=== PATIENT | male | born 1935 | race Caucasian/White ===

== ENCOUNTER 2016-08-10 16:10 | Outpatient (CLI) | payer BC, MEDICARE | END 2016-08-10 16:11 | disposition home or self-care (01) | DX: L60.0 Ingrowing nail (principal) ==

== ENCOUNTER 2016-11-18 13:09 | Outpatient (CLI) | payer MEDICARE, OTHER | END 2016-11-18 13:10 | disposition home or self-care (01) | DX: M85.88 Other specified disorders of bone density and structure, other site (principal); Z79.83 Long term (current) use of bisphosphonates ==

== ENCOUNTER → 2016-11-18 | Outpatient (CLI) | payer MEDICARE ==
[~2016-11-18] MED LIST: ALBUTEROL NEB 2.5 MG/3 ML INH ONE
== END ==
LOC: RT 14:30
PROVIDERS: ATTEND Family Medicine
DX: J45.909 Unspecified asthma, uncomplicated (principal)
CPT/HCPCS: 94060; J7613

== ENCOUNTER 2017-05-04 13:44 | Emergency (ER) | payer MEDICARE, OTHER ==
--- NOTE | 2017-05-04 15:06 | ED Physician Documentation ---
PD HPI HEAD INJURY - Stated complaint Stated Complaint: FOREHEAD LAC - Chief complaint Chief Complaint: Laceration - History obtained from History obtained from: Patient, Family - History of Present Illness Mechanism of head injury: Laceration (got kick back with chainsaw and the tip struck his forehead, with laceration there.) Where head injury occurred: Home Timing - onset: Today Location of injury: Front (forehead) Associated symptoms: No: LOC, AMS Symptoms worsen with: Palpation Contributing factors: No: Anticoagulated Similar symptoms before: Has not had sx before Recently seen: Not recently seen Review of Systems Eyes: denies: Loss of vision, Decreased vision Neurologic: denies: Altered mental status, Headache PD PAST MEDICAL HISTORY - Past Medical History Cardiovascular: High cholesterol Respiratory: Asthma GI: GERD - Past Surgical History Past Surgical History: Yes HEENT: Tonsil/Adenoidectomy - Present Medications Home Medications: Ambulatory Orders Medication Instructions Recorded Confirmed Simvastatin [Zocor] 10 mg PO DAILY 11/11/13 05/04/17 Atenolol [Tenormin] 25 mg PO DAILY 05/04/17 05/04/17 Gabapentin [Neurontin] 100 mg PO DAILY 05/04/17 05/04/17 Montelukast [Singulair] 10 mg PO QPM 05/04/17 05/04/17 tiZANidine [Zanaflex] 2 mg PO DAILY 05/04/17 05/04/17 traZODone [Desyrel] 50 mg PO QPM 05/04/17 05/04/17 - Allergies Allergies/Adverse Reactions: Allergies Allergy/AdvReac Type Severity Reaction Status Date / Time No Known Drug Allergies Allergy Verified 05/04/17 14:14 - Social History Does the pt smoke?: No Smoking Status: Never smoker Does the pt drink ETOH?: No Does the pt have substance abuse?: No - Immunizations Immunizations are current?: Yes - POLST Patient has POLST: No PD ED PE NORMAL - Vitals Vital signs reviewed: Yes - General General: Alert and oriented X 3, No acute distress, Well developed/nourished - HEENT HEENT: PERRL, EOMI, Other (forehead above left eyebrow with 2 cm laceration with irregular edges, mild bleeding, no FB, full thickness. Not apparent bone injury and not deep tenderness. ) - Neck Neck: Supple, no meningeal sign, No bony TTP, No adenopathy - Neuro Neuro: Alert and oriented X 3, cyber systems engineer 2-12 intact, No motor deficit, No sensory deficit, Normal speech, Other - Psych Psych: Normal mood, Normal affect Results - Vitals Vitals: Oxygen O2 Source Room air Procedures - Laceration (location) forehead Length in cm: 2 Wound type: Irregular, Into subcut fat, Clean. No: Contaminated Anesthesia: Lidocaine 1% with epi Skin layer closure: Nylon, Running, Size #-0 - enter number (5) Other: Patient tolerated well, No complications, Neurovascular intact, Dressing applied, Tetanus booster given Complexity: Simple PD MEDICAL DECISION MAKING - ED course Complexity details: considered differential (no signs of CHI and is not on blood thinners. ), d/w patient Departure - Departure Disposition: 01 Home, Self Care Clinical Impression: Laceration of forehead Qualifiers: Encounter type: initial encounter Qualified Code(s): S01.81XA - Laceration without foreign body of other part of head, initial encounter Condition: Stable Record reviewed to determine appropriate education?: Yes Instructions: ED Laceration Facial Sutr Tape Follow-Up: Layo King MD [Primary Care Provider] - Comments: It is okay to wash and shower. Clean off the wound twice a day with soap and water, or peroxide and water. Apply some antibiotic ointment to it to keep it moist. Also to watch for signs of infection such as purulence, redness or increasing pain. Return to your primary care or the ER at the specified time for suture removal. Tylenol or ibuprofen if needed for pains. Suture removal 8 -10 days. Discharge Date/Time: 05/04/17 16:08
[2017-05-04] MEDS ORDERED: LIDOCAINE MPF 1%-EPI 1:200000 30 ML VIAL ONE (15:23)
[2017-05-04] MEDS: LIDOCAINE 1%-EPI 1:100000 20 ML MDV SUBQ ONE (15:26)
[2017-05-04 16:03] VITALS: BP 114/64
[2017-05-04] MEDS ORDERED: BACITRACIN OINT TOP ONE (16:05)
== END 2017-05-04 16:08 | disposition home or self-care (01) ==
LOC: ED 13:44
DX: S01.81XA Laceration without foreign body of other part of head, initial encounter (principal); W22.8XXA Striking against or struck by other objects, initial encounter; Y93.89 Activity, other specified; Y92.009 Unspecified place in unspecified non-institutional (private) residence as the place of occurrence of the external cause; E78.00 Pure hypercholesterolemia, unspecified
CPT/HCPCS: 12011; 99282; 99283

== ENCOUNTER 2018-03-14 16:49 | Outpatient (CLI) | payer MEDICARE, OTHER ==
--- NOTE | 2018-03-15 03:35 | XRAY Report ---
Procedure Date: 03/14/2018 Accession Number: [id number] / [id number] Procedure: XR - Hip w/Pelvis 2-3V RT CPT Code: FULL RESULT: EXAM: RIGHT HIP AND PELVIS RADIOGRAPHY EXAM DATE: 03/14/2018 05:51 PM. HISTORY: R HIP PAIN. COMPARISONS: None. TECHNIQUE: 1 view of the pelvis and 1 view of the hip. FINDINGS: Bones: Normal. No fracture or bone lesion. Joints: Mild bilateral hip osteoarthritis. Soft Tissues: Normal. No soft tissue swelling. IMPRESSION: Mild osteoarthritis. RADIA
--- NOTE | 2018-03-15 08:55 | Ultrasound Report ---
Procedure Date: 03/14/2018 Accession Number: [id number] / [id number] Procedure: US - Carotid Doppler Complete CPT Code: FULL RESULT: EXAM: BILATERAL CAROTID AND VERTEBRAL ARTERY DUPLEX DOPPLER ULTRASOUND: EXAM DATE: 03/14/2018 05:58 PM CLINICAL HISTORY: Tinnitus, right ear. COMPARISON: None. TECHNIQUE: Grayscale imaging, color Doppler, and duplex spectral Doppler were used to evaluate the carotid and vertebral arteries bilaterally. Static images were obtained. FINDINGS: There is mild plaque in the carotid bulb extending into the external carotid arteries bilaterally. Normal antegrade flow is present in bilateral vertebral arteries. VELOCITIES (cm/sec): Right: RCCA Mid: PSV 199 cm/sec. RCCA Dist: PSV 178 cm/sec. FLORES Prox: PSV 84 cm/sec, EDV 13 cm/sec. FLORES Mid: PSV 92 cm/sec, EDV 21 cm/sec. FLORES Dist: PSV 85 cm/sec, EDV 26 cm/sec RECA: PSV 196 cm/sec. RVA: PSV 71 cm/sec. RVA flow direction: Antegrade. ICA/CCA: 0.46 Left: LCCA Mid: PSV 150 cm/sec. LCCA Dist: PSV 115 cm/sec. LICA Prox: PSV 68 cm/sec, EDV 14 cm/sec. LICA Mid: PSV 103 cm/sec, EDV 23 cm/sec. LICA Dist: PSV 83 cm/sec, EDV 22 cm/sec LECA: PSV 109 cm/sec. LVA: PSV 94 cm/sec. RVA flow direction: Antegrade. ICA/CCA: 0.68 IMPRESSION: 1. There is mild plaque in the left and right carotid bulbs extending into the bilateral external carotid arteries. No significant bilateral internal carotid artery plaquing. 2. In the right carotid artery there are no elevated carotid artery velocities to suggest hemodynamically significant stenosis. 3. In the left carotid artery there are no elevated carotid artery velocities to suggest hemodynamically significant stenosis. 4. Normal antegrade flow is present in bilateral vertebral arteries. General Recommendations: Stenosis =50% ICA - Follow-up ultrasound 6-12 months Stenosis <50% ICA - High Risk Patient with plaque - Follow-up ultrasound 1-2 years Normal Study but High Risk Patient - Follow-up ultrasound 3-5 years Management recommendations and diagnostic criteria are based on current IAC endorsed standards in Carotid Artery Stenosis: Grayscale and Doppler Ultrasound Diagnosis. Validated velocity measurements with angiographic measurements and velocity criteria are extrapolated from diameter data as defined by the Society of Radiologists in Ultrasound Consensus Conference Radiology 2003; 229;340-346. RADIA
== END 2018-03-14 16:50 | disposition home or self-care (01) ==
LOC: DI 16:49
PROVIDERS: ATTEND Nurse Practitioner Family
DX: H93.11 Tinnitus, right ear (principal); M16.11 Unilateral primary osteoarthritis, right hip
CPT/HCPCS: 93880

== ENCOUNTER 2018-03-31 11:24 | Outpatient (CLI) | payer MEDICARE, OTHER ==
[2018-03-31] MEDS ORDERED: IOPAMIDOL-300 100 ML VIAL ONE (11:33)
[2018-03-31] MEDS ORDERED: IOPAMIDOL-300 100 ML VIAL IVP ONE (12:17)
--- NOTE | 2018-04-04 14:14 | CT Report ---
Reason: PULSATILE TINNITUS, EAR JAW PAIN WITH CUTTING WOOD Procedure Date: 03/31/2018 Accession Number: [id number] / [id number] Procedure: CT - Head Angio CPT Code: FULL RESULT: EXAM: CT ANGIOGRAM HEAD. EXAM DATE: 03/31/2018 12:18 PM CLINICAL HISTORY: Pulsatile tinnitus. Jaw pain. COMPARISON: Accompany CT angiogram neck. TECHNIQUE: Using a multidetector scanner, high-resolution axial images were acquired from the skull base through vertex following rapid infusion of intravenous contrast. Reformats: Multiplanar MIP reformats were reconstructed. Nascet criteria used for stenosis measurement. IV Contrast: 100 cc Isovue-300 given in total. In accordance with CT protocol optimization, one or more of the following dose reduction techniques were utilized for this exam: automated exposure control, adjustment of mA and /or KV based on patient size, or use of iterative reconstructive technique. Findings: Relevant images are indicated (image number, series number). Left ICA: Widely patent, including MCA, ANISHA. Right ICA: Widely patent including MCA, ANISHA. Posterior circulation: Patent distal bilateral vertebral arteries, basilar artery, patent bilateral GUARD LIEUTENANT. Small left, minimal right PCOM. Patent major draining veins. Orbital contents unremarkable, mild scattered paranasal sinus mucosal thickening. Bilateral mastoid air cells clear. Skull intact. No hemorrhage, mass or midline shift. Mild/moderate generalized brain atrophy present, with mild compensatory ventricular enlargement. IMPRESSION: 1. Patent major arteries of the brain, with normal anatomical variability as described. No aneurysm, dissection, stenosis, AVM. 2. Patent major veins. 3. Mild/moderate generalized brain atrophy.
--- NOTE | 2018-04-04 16:17 | CT Report ---
Reason: PULSATILE TINNITUS, EAR AND JAW PAIN Procedure Date: 03/31/2018 Accession Number: [id number] / [id number] Procedure: CT - Neck Angio CPT Code: FULL RESULT: EXAM: CT ANGIOGRAM NECK. EXAM DATE: 03/31/2018 12:18 PM. CLINICAL HISTORY: 82-year-old man with pulsatile tinnitus and jaw pain. COMPARISON: None. TECHNIQUE: Routine axial helical imaging was performed from the skull base through the aortic arch. Reconstructions: Routine multiplanar 3D MIP reconstructions. IV Contrast: 100 cc Isovue-300. Evaluation of arterial stenosis is based on a NASCET method of measurement. In accordance with CT protocol optimization, one or more of the following dose reduction techniques were utilized for this exam: automated exposure control, adjustment of mA and/or KV based on patient size, or use of iterative reconstructive technique. FINDINGS: RIGHT: - Common and Internal Carotid: Patent without significant stenosis. There is mild calcified atherosclerotic plaque at the bifurcation and along the siphon. Stenosis by NASCET criteria: 0%. The cervical ICA has a "stacked coins" appearance, suggestive of fibromuscular dysplasia. No evidence of dissection. No evidence of aneurysm along intracranial ICA. - External Carotid: Unremarkable. - Vertebral: Patent without significant stenosis. The V2 and V3 segments demonstrate mulifocal mild stenoses with a "stacked coins" appearance. NO evidence of dissection. LEFT: - Common and Internal Carotid: Patent without significant stenosis. There is mild calcified atherosclerotic plaque at the bifurcation and trace atherosclerotic plaque along the siphon. Stenosis by NASCET criteria: 0%. The cervical ICA has a "stacked coins" appearance, suggestive of fibromuscular dysplasia. No evidence of dissection. No evidence of aneurysm along intracranial ICA. - External Carotid: Unremarkable. - Vertebral: Patent without significant stenosis. The V2 and V3 segments demonstrate multifocal mild stenoses with a "stacked coins" appearance. No evidence of dissection. SOFT TISSUES AND BONES: Visualized soft tissues are unremarkable. Lung apices are clear. No evidence of acute fracture or malalignment of the cervical spine. Other: Filling defect in the right transverse sinus likely represents arachnoid granulation, but chronic thrombosis cannot be excluded. IMPRESSION: 1. Carotid and vertebral arteries are patent without significant stenosis or dissection. 2. The carotid and vertebral arteries demostrate mild multifocal stenoses with "stacked coins" appearnace, suggestive of fibromuscular dysplasia. 3. Filling defect in the right transverse sinus likely represents a prominent arachnoid granulation, but chronic thrombosis cannot be excluded. If symptoms are right-sided, consider MRA of the head or catheter angiogram to evalute for dural AV fistula.
== END 2018-03-31 11:25 | disposition home or self-care (01) ==
LOC: LAB 11:24 → DI 11:25
PROVIDERS: ATTEND Internal Medicine
DX: M26.609 Unspecified temporomandibular joint disorder, unspecified side (principal); H93.11 Tinnitus, right ear; G31.9 Degenerative disease of nervous system, unspecified; I65.03 Occlusion and stenosis of bilateral vertebral arteries
CPT/HCPCS: 36415; 70496; 70498; 82565; Q9967

== ENCOUNTER 2018-05-02 12:28 | Outpatient (CLI) | payer MEDICARE, OTHER ==
--- NOTE | 2018-05-02 15:03 | MRI Report ---
Reason: ABNORMAL HEAT CT Procedure Date: 05/02/2018 Accession Number: [id number] / [id number] Procedure: MRI - Angio Brain W/O (MRA) CPT Code: FULL RESULT: EXAM MRA BRAIN EXAM DATE: 05/02/2018 01:27 PM. 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 Evaluate for vascular pathology. COMPARISON: CTA head and neck 03/31/2018.. TECHNIQUE: Multiplanar, multisequence MRA sequences of the brain were performed. Other: None. Post-processing: Multiplanar 3D MIP reconstructions. IV Contrast: None. FINDINGS: RIGHT Internal Carotid (ICA): No aneurysm, stenosis or anomaly. Middle Cerebral (MCA): No aneurysm, stenosis or anomaly. Anterior Cerebral (ANISHA): No aneurysm, stenosis or anomaly. Posterior Cerebral (FAX MACHINE REPAIRER): No aneurysm, stenosis or anomaly. Posterior Communicating (P-COM): No aneurysm, stenosis or anomaly. Vertebral: No aneurysm, stenosis or anomaly in the visualized upper vertebral artery. LEFT Internal Carotid (ICA): No aneurysm, stenosis or anomaly. Middle Cerebral (MCA): No aneurysm, stenosis or anomaly. Anterior Cerebral (ANISHA): No aneurysm, stenosis or anomaly. Posterior Cerebral (FAX MACHINE REPAIRER): No aneurysm, stenosis or anomaly. Posterior Communicating (P-COM): No aneurysm, stenosis or anomaly. Vertebral: No aneurysm, stenosis or anomaly in the visualized upper vertebral artery. MIDLINE Anterior Communicating (A-COM): No aneurysm, stenosis or anomaly. Basilar Artery:No aneurysm, stenosis or anomaly. Other: The right superficial temporal artery is asymmetrically enlarged compared to the left. There are numerous transosseous branches seen that appear to communicate with intradural veins. There is abnormal flow related signal seen within the distal right transverse and right sigmoid sinus. Overall findings are suspicious for potential dural AV fistula. IMPRESSION: 1. The right superficial temporal artery is asymmetrically enlarged compared to the left. There are numerous transosseous branches seen that appear to communicate with intradural veins. There is abnormal flow related signal seen within the distal right transverse and right sigmoid sinus. Overall findings are suspicious for potential dural AV fistula. Consider catheter angiogram for further evaluation. 2. No large vessel occlusion seen. 3. No intracranial aneurysm. No high-grade intra-cranial stenosis. RADIA
== END 2018-05-02 12:29 | disposition home or self-care (01) ==
LOC: DI 12:28
PROVIDERS: ATTEND Internal Medicine
DX: R93.0 Abnormal findings on diagnostic imaging of skull and head, not elsewhere classified (principal); I77.89 Other specified disorders of arteries and arterioles
CPT/HCPCS: 70544

== ENCOUNTER 2019-07-10 19:00 | Emergency (ER) | payer MEDICARE, OTHER ==
--- NOTE | 2019-07-10 20:44 | XRAY Report ---
Reason: twisting injury Procedure Date: 07/10/2019 Accession Number: [id number] / [id number] Procedure: XR - Ankle 3 View RT CPT Code: Final Report FULL RESULT: EXAM: RIGHT ANKLE RADIOGRAPHY EXAM DATE: 07/10/2019 08:17 PM. CLINICAL HISTORY: Trauma, pain. COMPARISON: None. TECHNIQUE: 3 views. FINDINGS: Bones: Minimally to nondisplaced oblique fracture of lateral malleolus. Otherwise unremarkable. Joints: Normal. No effusion. No subluxations. The ankle mortise is normally aligned. Soft Tissues: Soft tissue swelling. IMPRESSION: Nondisplaced lateral malleolar fracture. RADIA
--- NOTE | 2019-07-10 21:44 | ED Physician Documentation ---
History of Present Illness - Stated complaint Stated Complaint: RT FOOT TWIST - Chief complaint Chief Complaint: Ext Problem - Additonal information Additional information: This is an 84-year-old male who presents with right ankle pain. He was feeding ducks and he slipped and sounds he probably had an inversion injury of his right foot. He has had pain in his ankle since. He denies numbness or tingling. He has no pain in his upper leg or his distal foot. Review of Systems Musculoskeletal: reports: Extremity pain Neurologic: denies: Focal weakness, Numbness PD PAST MEDICAL HISTORY - Past Medical History Cardiovascular: Hypertension, High cholesterol Respiratory: Asthma Endocrine/Autoimmune: Type 2 diabetes GI: GERD Musculoskeletal: Osteoarthritis, Osteoporosis, Chronic back pain - Past Surgical History Past Surgical History: Yes Ortho: Spine surgery HEENT: Tonsil/Adenoidectomy - Present Medications Home Medications: Ambulatory Orders Medication Instructions Recorded Confirmed Atenolol [Tenormin] 25 mg PO DAILY 05/04/17 05/21/19 Gabapentin [Neurontin] 300 mg PO QPM 05/04/17 05/21/19 Montelukast [Singulair] 10 mg PO QPM 05/04/17 05/21/19 tiZANidine [Zanaflex] 2 mg PO DAILY PRN 05/04/17 05/21/19 traZODone [Desyrel] 100 mg PO QPM 05/04/17 05/21/19 Ascorbic Acid [Vitamin C] 500 mg PO DAILY 05/21/19 05/21/19 Calcium Carbonate [Tums (Calcium 500 mg PO BID 05/21/19 05/21/19 Carbonate 500mg)] Cholecalciferol (Vitamin D3) 2,000 unit PO DAILY 05/21/19 05/21/19 [Vitamin D] Famotidine [Pepcid] 20 mg PO DAILY 05/21/19 05/21/19 Glucos Sul 2Kcl/MSM/Chond/C/Mn 1 each PO DAILY 05/21/19 05/21/19 [Glucosamine Chondroitin Cap] Multivit-Min/FA/Lycopen/Lutein 1 each PO DAILY 05/21/19 05/21/19 [Centrum Silver Men Tablet] [place]-3S/Dha/Epa/Fish Oil [Fish 1 each PO DAILY 05/21/19 05/21/19 Oil [place]-3 Softgel] Prasterone (Dhea) [Dhea 25] 25 mg PO DAILY 05/21/19 05/21/19 Pravastatin [Pravachol] 10 mg PO DAILY 05/21/19 05/21/19 Saw Easley Fruit [Saw Easley] 450 mg PO BID 05/21/19 05/21/19 Sour Clay Extract [Tart Clay 1,000 mg PO DAILY 05/21/19 05/21/19 Extract] Turmeric Root Extract [Turmeric 500 mg PO DAILY 05/21/19 05/21/19 Curcumin] Acetaminophen/Diphenhydramine 1 - 2 each PO QPM 05/22/19 05/22/19 [Tylenol Pm Ex-Strength Caplet] Magnesium 250 mg PO QPM 05/22/19 05/22/19 Melatonin 10 - 20 mg PO QPM 05/22/19 05/22/19 Potassium Chelate 99 mg PO QPM 05/22/19 05/22/19 Hydrocodone/Acetaminophen 1 - 2 each PO Q6H PRN #7 tablet 07/10/19 [Hydrocodon-Acetaminophen 5-325] - Allergies Allergies/Adverse Reactions: Allergies Allergy/AdvReac Type Severity Reaction Status Date / Time No Known Drug Allergies Allergy Verified 05/04/17 14:14 - Social History Does the pt smoke?: No Smoking Status: Never smoker Does the pt drink ETOH?: No Does the pt have substance abuse?: No - Immunizations Immunizations are current?: Yes - POLST Patient has POLST: No PD ED PE NORMAL - Vitals Vital signs reviewed: Yes - General General: Alert and oriented X 3, No acute distress - HEENT HEENT: Atraumatic - Respiratory Respiratory: No respiratory distress - Abdomen Abdomen: Non distended - Derm Derm: Warm and dry - Extremities Extremities: Other (There is edema over the lateral malleolus, with some bruising. There is no tenderness of the forefoot, or the proximal tibia or fibula. There is focal tenderness in the distal tibia/fibula. This is greatest over the lateral malleolus. Patient is able to flex and extend his ankle somewhat, and wiggle his toes without issue. He has brisk capillary refill, Sensation intact light touch) - Neuro Neuro: Alert and oriented X 3 - Psych Psych: Normal mood, Normal affect Results - Vitals Vitals: Vital Signs - 24 hr 07/10/19 07/10/19 19:13 23:17 Temperature 36.5 C 36.8 C Heart Rate 64 63 Respiratory 18 18 Rate Blood Pressure 156/72 H 164/77 H O2 Saturation 97 96 Oxygen O2 Source Room air - Rads (name of study) XR R ankle Radiology: Other (Non-displaced lateral malleolar fracture) Procedures - Splint (location) Rigth ankle Splint applied by: Tech Type of splint: Short leg, Posterior, Stirrup Other: Patient tolerated well, Other (Walker provided) PD MEDICAL DECISION MAKING - ED course Complexity details: considered differential (Fracture, dislocation, sprain, strain) ED course: Pt's limb is neurovascularly intact. Imaging reveals a non-displaced lateral malleolar fracture. This is a closed fracture. It is just above the level of the mortise so an AO splint was applied and pt was made non-weight bearing. He was given a walker and instructions on elevation and pain control, and orthopedics follow up to discuss further treatment. Return precuations discussed and patient was discharged home in the care of family. Departure - Departure Disposition: 01 Home, Self Care Clinical Impression: Closed fibular fracture Qualifiers: Encounter type: initial encounter Fibula location: distal Fracture morphology: unspecified fracture morphology Laterality: right Qualified Code(s): S82.831A - Other fracture of upper and lower end of right fibula, initial encounter for closed fracture Condition: Good Follow-Up: Patricio Kerr MD [Provider Admit Priv/Credential] - Within 1 week Prescriptions: Hydrocodone/Acetaminophen [Hydrocodon-Acetaminophen 5-325] 1 - 2 each PO Q6H PRN #7 tablet PRN Reason: pain Comments: You broke your fibula, the outside portion of your ankle. We have put this into a splint, please try not to bear any weight on it until you follow-up with the orthopedist. Please call for an appointment within the next week. In the meantime use the walker and do not bear weight on your right foot/ankle Elevate the leg and you may put ice over it to help with swelling as well. Try using just Tylenol for pain control if possible. If Tylenol is not sufficient, you may use the Vicodin, but please use this sparingly as it has side effects. Do not drink alcohol or drive while taking narcotic pain medication. Note that many narcotic pain relievers also contain Tylenol/acetaminophen. Please ensure that your total dose of acetaminophen from all sources does not exceed 3 g (3000 mg) per day. You may get constipated while on this medication. Take a stool softener such as Colace twice a day while you are on it. Also add an [id number] laxative such as senna or MiraLAX on any day that you do not have a bowel movement. If you received a narcotic pain medication or sedative while in the emergency department, do not drive for the next 24 hours. Discharge Date/Time: 07/10/19 23:28
[2019-07-10 23:18] VITALS: BP 164/77
== END 2019-07-10 23:28 | disposition home or self-care (01) ==
LOC: ED 19:00
DX: S82.64XA Nondisplaced fracture of lateral malleolus of right fibula, initial encounter for closed fracture (principal); X50.1XXA Overexertion from prolonged static or awkward postures, initial encounter; Y93.89 Activity, other specified; I10 Essential (primary) hypertension; E11.9 Type 2 diabetes mellitus without complications
CPT/HCPCS: 29515; 99283

== ENCOUNTER 2019-09-05 15:49 | Emergency (ER) | payer MEDICARE, OTHER ==
--- NOTE | 2019-09-05 16:22 | ED Physician Documentation ---
History of Present Illness - Stated complaint Stated Complaint: DIZZY - Chief complaint Chief Complaint: Neuro - History obtained from History obtained from: Patient, Family - History of Present Illness Timing: Today Pain level max: 0 Pain level now: 0 Improved by: being still Worsened by: movement - Additonal information Additional information: 84-year-old male presents the emergency department, and feels like the room is spinning around him. This is intermittent. Worse with movement of the head. Better with rest. His states that he has had decreased appetite over the past week. He is on several medications at home but they did not bring a medi cation list and do not know the names of the medications he is taking. They state that there are no new medications. They state that he has had brain surgery x2, they are not sure what the brain surgery was for. The patient states that he had "cement" placed into his head. States that he had an angiogram in his brain a few months ago and they state that the results were "nothing that the doctor could do anything about". He has not had any chest pain or difficulty breathing. No fevers. No focal neurological deficits. No numbness or tingling. No headache. He has had several recent falls. He does have a broken right ankle as well. Review of Systems Ten Systems: 10 systems reviewed and negative Constitutional: denies: Fever, Chills Ears: denies: Ear pain Nose: denies: Rhinorrhea / runny nose, Congestion Throat: denies: Sore throat Cardiac: denies: Chest pain / pressure Respiratory: denies: Cough GI: denies: Abdominal Pain, Nausea, Vomiting, Diarrhea Skin: denies: Rash Musculoskeletal: denies: Neck pain, Back pain Neurologic: denies: Generalized weakness, Focal weakness, Numbness, Confused, Altered mental status, Headache, Head injury, LOC PD PAST MEDICAL HISTORY - Past Medical History Cardiovascular: Hypertension, High cholesterol Respiratory: Asthma Neuro: Other Endocrine/Autoimmune: Type 2 diabetes GI: GERD : Benign prostate hypertrophy HEENT: None Psych: None Musculoskeletal: Osteoarthritis, Osteoporosis, Chronic back pain Derm: None - Past Surgical History Past Surgical History: Yes Ortho: Spine surgery HEENT: Tonsil/Adenoidectomy - Present Medications Home Medications: Ambulatory Orders Medication Instructions Recorded Confirmed Gabapentin [Neurontin] 300 mg PO QPM 05/04/17 05/21/19 Montelukast [Singulair] 10 mg PO QPM 05/04/17 05/21/19 atenoloL [Tenormin] 25 mg PO DAILY 05/04/17 05/21/19 tiZANidine [Zanaflex] 2 mg PO DAILY PRN 05/04/17 05/21/19 traZODone [Desyrel] 100 mg PO QPM 05/04/17 05/21/19 Ascorbic Acid [Vitamin C] 500 mg PO DAILY 05/21/19 05/21/19 Calcium Carbonate [Tums (Calcium 500 mg PO BID 05/21/19 05/21/19 Carbonate 500mg)] Cholecalciferol (Vitamin D3) 2,000 unit PO DAILY 05/21/19 05/21/19 [Vitamin D] Famotidine [Pepcid] 20 mg PO DAILY 05/21/19 05/21/19 Glucos Sul 2Kcl/MSM/Chond/C/Mn 1 each PO DAILY 05/21/19 05/21/19 [Glucosamine Chondroitin Cap] Multivit-Min/FA/Lycopen/Lutein 1 each PO DAILY 05/21/19 05/21/19 [Centrum Silver Men Tablet] [place]-3S/Dha/Epa/Fish Oil [Fish 1 each PO DAILY 05/21/19 05/21/19 Oil [place]-3 Softgel] Prasterone (Dhea) [Dhea 25] 25 mg PO DAILY 05/21/19 05/21/19 Pravastatin [Pravachol] 10 mg PO DAILY 05/21/19 05/21/19 [place] Fruit [Saw [place]] 450 mg PO BID 05/21/19 05/21/19 Sour Clay Extract [Tart [place] 1,000 mg PO DAILY 05/21/19 05/21/19 Extract] Turmeric Root Extract [Turmeric 500 mg PO DAILY 05/21/19 05/21/19 Curcumin] Acetaminophen/Diphenhydramine 1 - 2 each PO QPM 05/22/19 05/22/19 [Tylenol Pm Ex-Strength Caplet] Magnesium 250 mg PO QPM 05/22/19 05/22/19 Melatonin 10 - 20 mg PO QPM 05/22/19 05/22/19 Potassium Chelate 99 mg PO QPM 05/22/19 05/22/19 Hydrocodone/Acetaminophen 1 - 2 each PO Q6H PRN #7 tablet 07/10/19 [Hydrocodon-Acetaminophen 5-325] Meclizine HCl 25 mg PO Q6H PRN #20 tablet 09/05/19 - Allergies Allergies/Adverse Reactions: Allergies Allergy/AdvReac Type Severity Reaction Status Date / Time No Known Drug Allergies Allergy Verified 09/05/19 15:57 - Social History Does the pt smoke?: No Smoking Status: Never smoker Does the pt drink ETOH?: No Does the pt have substance abuse?: No - Immunizations Immunizations are current?: Yes - POLST Patient has POLST: No PD ED PE NORMAL - Vitals Vital signs reviewed: Yes - General General: Alert and oriented X 3, No acute distress, Well developed/nourished - HEENT HEENT: Atraumatic, PERRL, Ears normal, Moist mucous membranes, Other (No nystagmus) - Neck Neck: Supple, no meningeal sign, No JVD, No bruit - Cardiac Cardiac: RRR, Strong equal pulses - Respiratory Respiratory: No respiratory distress, Clear bilaterally - Abdomen Abdomen: Soft, Non tender, Non distended - Derm Derm: Warm and dry - Extremities Extremities: No edema, No calf tenderness / cord - Neuro Neuro: Alert and oriented X 3, 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 No nystagmus. Patient is currently not dizzy.) - Psych Psych: Normal mood, Normal affect - Free text exam Free text exam: Normal ambulation. Normal cerebellar testing. Results - Vitals Vitals: Vital Signs - 24 hr 09/05/19 09/05/19 09/05/19 15:53 17:21 19:00 Temperature 36.8 C Heart Rate 60 55 L 60 Respiratory 17 12 12 Rate Blood Pressure 160/55 H 121/70 138/61 H O2 Saturation 98 97 97 Oxygen O2 Source Room air - EKG (time done) 1620 Rate: Rate (enter#) (1620) Rhythm: NSR (55) [place]: Normal Intervals: Normal [place], Wide QRS QRS: Normal Ischemia: Normal ST segments - Labs Labs: Laboratory Tests 09/05/19 09/05/19 09/05/19 16:24 16:24 16:24 WBC 6.5 RBC 4.97 Hgb 15.6 Hct 46.6 MCV 93.8 MCH 31.4 H MCHC 33.5 RDW 13.0 Plt Count 182 MPV 9.2 Neut # (Auto) 4.2 Lymph # (Auto) 1.6 [place] # (Auto) 0.5 Eos # (Auto) 0.1 Baso # (Auto) 0.1 Absolute Nucleated RBC 0.00 Nucleated RBC % 0.0 Sodium 139 Potassium 4.0 Chloride 100 L Carbon Dioxide 27 Anion Gap 12.0 BUN 16 Creatinine 0.9 Estimated GFR (MDRD) 80 L Glucose 113 H POC Whole Bld Glucose Calcium 9.6 Total Bilirubin 0.6 AST 21 ALT 23 Alkaline Phosphatase 39 L Troponin I High Sens 6.3 Total Protein 6.7 Albumin 4.2 Globulin 2.5 Albumin/Globulin Ratio 1.7 Lipase 27 Urine Color Urine Clarity Urine pH Ur Specific [place] Urine Protein Urine Glucose (UA) Urine Ketones Urine Occult Blood Urine Nitrite Urine Bilirubin Urine Urobilinogen Ur Leukocyte Esterase Ur Microscopic Review Urine Culture Comments 09/05/19 09/05/19 16:52 18:18 WBC RBC Hgb Hct MCV MCH MCHC RDW Plt Count MPV Neut # (Auto) Lymph # (Auto) [place] # (Auto) Eos # (Auto) Baso # (Auto) Absolute Nucleated RBC Nucleated RBC % Sodium Potassium Chloride Carbon Dioxide Anion Gap BUN Creatinine Estimated GFR (MDRD) Glucose POC Whole Bld Glucose 104 H Calcium Total Bilirubin AST ALT Alkaline Phosphatase Troponin I High Sens Total Protein Albumin Globulin Albumin/Globulin Ratio Lipase Urine Color YELLOW Urine Clarity CLEAR Urine pH 6.0 Ur Specific [place] 1.025 Urine Protein NEGATIVE Urine Glucose (UA) NEGATIVE Urine Ketones NEGATIVE Urine Occult Blood NEGATIVE Urine Nitrite NEGATIVE Urine Bilirubin NEGATIVE Urine Urobilinogen 0.2 (NORMAL) Ur Leukocyte Esterase NEGATIVE Ur Microscopic Review NOT INDICATED Urine Culture Comments NOT INDICATED - Rads (name of study) head CT Radiology: Prelim report reviewed, EMP read contemporaneously, See rad report (no acute intracranial abnormality. ) PD MEDICAL DECISION MAKING - ED course Complexity details: reviewed results, re-evaluated patient, considered differential, d/w patient, d/w family ED course: Patient with what appears to be vertigo. Symptoms mostly resolved upon arrival to the emergency department. NIH stroke scale of 0. He was given a dose of meclizine. Ambulating without any difficulty. Feels better after IV fluids as well. No acute findings on head CT or laboratory testing. No UTI. No evidence of cerebellar stroke. Patient and family counseled regarding signs and symptoms for which I believe and urgent re-evaluation would be necessary. Patient with good understanding of and agreement to plan and is comfortable going home at this time This document was made in part using voice recognition software. While efforts are made to proofread this document, sound alike and grammatical errors may occur. Departure - Departure Disposition: 01 Home, Self Care Clinical Impression: Vertigo Condition: Good Instructions: ED Vertigo Unspecified Follow-Up: Layo King MD [Primary Care Provider] - Within 1 week Prescriptions: Meclizine HCl 25 mg PO Q6H PRN #20 tablet PRN Reason: vertigo Comments: You can use the meclizine as needed for vertigo. Return if you worsen. Follow- up with your doctor for further care. Discharge Date/Time: 09/05/19 19:25
[2019-09-05 16:33] LABS: BASOPHILS # (AUTO) 0.1 10^3/uL (0.0-0.1); BASOPHILS % (AUTO) 0.9 %; EOSINOPHILS # (AUTO) 0.1 10^3/uL (0.0-0.7); EOSINOPHILS % (AUTO) 1.1 %; HGB - HEMOGLOBIN 15.6 g/dL (14.0-18.0); LYMPHOCYTES # (AUTO) 1.6 10^3/uL (1.5-3.5); LYMPHOCYTES % (AUTO) 24.7 %; MEAN CORPUSCULAR HEMOGLOBIN 31.4 pg (27.0-31.0); MEAN CORPUSCULAR HGB CONC 33.5 g/dL (32.0-36.0); MEAN CORPUSCULAR VOLUME 93.8 fL (80.0-94.0); MEAN PLATELET VOLUME 9.2 fL (7.4-11.4); MONOCYTES # (AUTO) 0.5 10^3/uL (0.0-1.0); MONOCYTES % (AUTO) 8.2 %; NEUTROPHILS # (AUTO) 4.2 10^3/uL (1.5-6.6); NEUTROPHILS % (AUTO) 64.3 %; PLT - PLATELET COUNT 182 10^3/uL (130-450); RED BLOOD COUNT 4.97 10^6/uL (4.70-6.10); WHITE BLOOD COUNT 6.5 x10^3/uL (4.8-10.8)
[2019-09-05 16:46] LABS: ALBUMIN 4.2 g/dL (3.2-5.5); ALBUMIN/GLOBULIN RATIO 1.7 (1.0-2.2); BILIRUBIN,TOTAL 0.6 mg/dL (0.2-1.0); CALCIUM 9.6 mg/dL (8.5-10.3); CREATININE 0.9 mg/dL (0.6-1.2); TOTAL PROTEIN 6.7 g/dL (6.7-8.2)
--- NOTE | 2019-09-05 16:54 | CT Report ---
Reason: dizzy Procedure Date: 09/05/2019 Accession Number: [id number] / [id number] Procedure: CT - HEAD WO CPT Code: Final Report FULL RESULT: EXAM: CT HEAD EXAM DATE: 09/05/2019 04:32 PM. CLINICAL HISTORY: Dizzy. COMPARISON: NECK ANGIO 03/31/2018 11:59 AM. TECHNIQUE: Multiaxial CT images were obtained from the foramen magnum to the vertex. Reformats: Sagittal and coronal. IV contrast: None. In accordance with CT protocol optimization, one or more of the following dose reduction techniques were utilized for this exam: automated exposure control, adjustment of mA and/or KV based on patient size, or use of iterative reconstructive technique. FINDINGS: Parenchyma: Metal artifact from right temporal device. No intraparenchymal hemorrhage. No evidence of mass, midline shift, or CT findings of acute infarction. Steward-white differentiation is distinct. Mild chronic microangiopathic white matter changes are evident. Extraaxial Spaces: Normal for age. No subdural or epidural collections identified. Ventricles: The ventricles and cortical sulci are prominent, consistent with age-related tissue loss. Sinuses and orbits: Imaged paranasal sinuses, orbits, and mastoids show no significant abnormality. Bones: No evidence of fracture or calvarial defect. Other: None. IMPRESSION: Generalized age-related cortical atrophic changes without evidence of acute intracranial abnormality. RADIA
[2019-09-05] MEDS ORDERED: SODIUM CHLORIDE 0.9% 1,000 ML IV ONE (16:56)
[2019-09-05 18:26] LABS: BILIRUBIN,URINE NEGATIVE (NEGATIVE); GLUCOSE, URINE (UA) NEGATIVE (NEGATIVE); KETONES,URINE (UA) NEGATIVE (NEGATIVE); LEUKOCYTE ESTERASE, URINE NEGATIVE (NEGATIVE); NITRITE,URINE NEGATIVE (NEGATIVE); OCCULT BLOOD,URINE NEGATIVE (NEGATIVE); PROTEIN,URINE NEGATIVE (NEGATIVE); UROBILINOGEN,URINE 0.2 (NORMAL) E.U./dL (NORMAL)
[2019-09-05] MEDS ORDERED: MECLIZINE 12.5 MG TABLET PO STA (18:26)
[2019-09-05 18:27] LABS: CLARITY,URINE CLEAR (CLEAR)
[2019-09-05 19:17] VITALS: BP 138/61
== END 2019-09-05 19:25 | disposition home or self-care (01) ==
LOC: ED 15:49
DX: R42 Dizziness and giddiness (principal); I10 Essential (primary) hypertension; E11.9 Type 2 diabetes mellitus without complications
CPT/HCPCS: 36415; 70450; 80053; 81003; 83690; 84484; 85025; 93005; 96360; 99284; A9270; 81001; 87086

== ENCOUNTER → 2020-04-10 | Outpatient (CLI) | payer MEDICARE, OTHER ==
--- NOTE | 2020-04-10 16:37 | XRAY Report ---
PROCEDURE: Ankle 3 View RT INDICATIONS: RIGHT ANKLE FRACTURE TECHNIQUE: 3 views of the ankle were acquired. COMPARISON: 07/19/2019, 07/10/2019 FINDINGS: Bones: There is a chronic fracture of the lateral malleolus redemonstrated with bridging bone. Howev er, there is persistent lucency along the fracture line. Mild osteophytosis is demonstrated inferiorl y in the lateral malleolus. There is a small avulsion fragment inferior to the medial malleolus which is new compared to the prior studies. Bridging calcifications are demonstrated in the distal tibial fibular syndesmosis which also appears new from the prior studies. Ankle mortise is normally aligned. Soft tissues: No tibiotalar joint effusion. Achilles tendon appears intact. IMPRESSION: 1. Chronic fracture of the lateral malleolus redemonstrated with persistent lucency along the fractur e line. 2. New syndesmotic calcification likely represents dystrophic calcifications. 3. Small avulsion fragment inferior to the medial malleolus appears new from the prior studies but is of indeterminate acuity. Reviewed by: Tacho Alexander MD on 04/10/2020 4:36 PM PDT Approved by: Tacho Alexander MD on 04/10/2020 4:36 PM PDT Station ID: [id number]
== END ==
LOC: DI.WCP 07:40
PROVIDERS: ATTEND Orthopaedic Surgery
DX: S82.61XD Displaced fracture of lateral malleolus of right fibula, subsequent encounter for closed fracture with routine healing (principal); R93.6 Abnormal findings on diagnostic imaging of limbs

== ENCOUNTER 2020-05-23 14:25 | Outpatient (CLI) | payer MEDICARE, OTHER ==
[2020-05-23 20:35] LABS: BASOPHILS % (AUTO) 0.8 %; EOSINOPHILS # (AUTO) 0.1 10^3/uL (0.0-0.7); EOSINOPHILS % (AUTO) 2.3 %; HGB - HEMOGLOBIN 15.6 g/dL (14.0-18.0); LYMPHOCYTES # (AUTO) 1.8 10^3/uL (1.5-3.5); LYMPHOCYTES % (AUTO) 33.4 %; MEAN CORPUSCULAR HEMOGLOBIN 30.6 pg (27.0-31.0); MEAN CORPUSCULAR HGB CONC 32.4 g/dL (32.0-36.0); MEAN CORPUSCULAR VOLUME 94.5 fL (80.0-94.0); MEAN PLATELET VOLUME 9.9 fL (7.4-11.4); MONOCYTES # (AUTO) 0.5 10^3/uL (0.0-1.0); MONOCYTES % (AUTO) 9.9 %; NEUTROPHILS # (AUTO) 2.8 10^3/uL (1.5-6.6); NEUTROPHILS % (AUTO) 52.8 %; PLT - PLATELET COUNT 198 10^3/uL (130-450); RED BLOOD COUNT 5.09 10^6/uL (4.70-6.10); WHITE BLOOD COUNT 5.2 x10^3/uL (4.8-10.8)
[2020-05-23 20:37] LABS: HEMOGLOBIN A1c% 6.5 % (4.27-6.07)
[2020-05-23 20:58] LABS: ALBUMIN 4.1 g/dL (3.2-5.5); ALBUMIN/GLOBULIN RATIO 1.4 (1.0-2.2); CALCIUM 9.3 mg/dL (8.5-10.3); CREATININE 0.9 mg/dL (0.6-1.2)
== END 2020-05-23 14:26 | disposition home or self-care (01) ==
LOC: LAB.S 14:25
PROVIDERS: ATTEND Internal Medicine
DX: I10 Essential (primary) hypertension (principal); E11.9 Type 2 diabetes mellitus without complications
CPT/HCPCS: 36415; 80053; 83036; 85025

== ENCOUNTER 2020-09-09 09:26 | Outpatient (CLI) | payer MEDICARE, OTHER ==
[2020-09-09 15:28] LABS: BASOPHILS # (AUTO) 0.1 10^3/uL (0.0-0.1); BASOPHILS % (AUTO) 0.7 %; EOSINOPHILS # (AUTO) 0.2 10^3/uL (0.0-0.7); EOSINOPHILS % (AUTO) 2.5 %; HGB - HEMOGLOBIN 16.4 g/dL (14.0-18.0); LYMPHOCYTES # (AUTO) 2.4 10^3/uL (1.5-3.5); LYMPHOCYTES % (AUTO) 35.1 %; MEAN CORPUSCULAR HEMOGLOBIN 30.8 pg (27.0-31.0); MEAN CORPUSCULAR VOLUME 96.2 fL (80.0-94.0); MONOCYTES # (AUTO) 0.7 10^3/uL (0.0-1.0); MONOCYTES % (AUTO) 9.7 %; NEUTROPHILS # (AUTO) 3.4 10^3/uL (1.5-6.6); NEUTROPHILS % (AUTO) 50.8 %; PLT - PLATELET COUNT 196 10^3/uL (130-450); RED BLOOD COUNT 5.32 10^6/uL (4.70-6.10); WHITE BLOOD COUNT 6.7 x10^3/uL (4.8-10.8)
[2020-09-09 15:35] LABS: HEMOGLOBIN A1c% 6.9 % (4.27-6.07)
[2020-09-09 16:40] LABS: CREATININE,URINE 129.2 mg/dL; MICROALBUM/CREATININE RATIO,UR 3.1 ug/mg (<30.0); MICROALBUMIN,URINE 0.4 mg/dL (0-300.0)
[2020-09-09 16:41] LABS: ALBUMIN 4.3 g/dL (3.2-5.5); ALBUMIN/GLOBULIN RATIO 1.7 (1.0-2.2); CALCIUM 9.5 mg/dL (8.5-10.3); CREATININE 0.9 mg/dL (0.6-1.2); TOTAL PROTEIN 6.8 g/dL (6.7-8.2)
== END 2020-09-09 09:27 | disposition home or self-care (01) ==
LOC: LAB.S 09:26
PROVIDERS: ATTEND Internal Medicine
DX: E11.9 Type 2 diabetes mellitus without complications (principal); I10 Essential (primary) hypertension
CPT/HCPCS: 36415; 80053; 82043; 82570; 82728; 83036; 85025

== ENCOUNTER 2021-03-06 09:44 | Outpatient (CLI) | payer MEDICARE, OTHER ==
[2021-03-06 14:29] LABS: BASOPHILS # (AUTO) 0.1 10^3/uL (0.0-0.1); BASOPHILS % (AUTO) 1.2 %; EOSINOPHILS # (AUTO) 0.2 10^3/uL (0.0-0.7); EOSINOPHILS % (AUTO) 3.1 %; HCT - HEMATOCRIT 46.5 % (42.0-52.0); LYMPHOCYTES # (AUTO) 1.7 10^3/uL (1.5-3.5); LYMPHOCYTES % (AUTO) 32.5 %; MEAN CORPUSCULAR HEMOGLOBIN 30.3 pg (27.0-31.0); MEAN CORPUSCULAR HGB CONC 32.3 g/dL (32.0-36.0); MEAN CORPUSCULAR VOLUME 93.9 fL (80.0-94.0); MEAN PLATELET VOLUME 9.9 fL (7.4-11.4); MONOCYTES # (AUTO) 0.6 10^3/uL (0.0-1.0); MONOCYTES % (AUTO) 10.8 %; NEUTROPHILS # (AUTO) 2.7 10^3/uL (1.5-6.6); NEUTROPHILS % (AUTO) 51.2 %; PLT - PLATELET COUNT 181 10^3/uL (130-450); RED BLOOD COUNT 4.95 10^6/uL (4.70-6.10); RED CELL DISTRIBUTION WIDTH 13.1 % (12.0-15.0); WHITE BLOOD COUNT 5.2 x10^3/uL (4.8-10.8)
[2021-03-06 14:44] LABS: ALBUMIN 3.7 g/dL (3.2-5.5); ALBUMIN/GLOBULIN RATIO 1.5 (1.0-2.2); BILIRUBIN,TOTAL 1.1 mg/dL (0.2-1.0); CALCIUM 8.9 mg/dL (8.5-10.3); CREATININE 0.9 mg/dL (0.6-1.2); POTASSIUM 4.2 mmol/L (3.5-5.0); TOTAL PROTEIN 6.2 g/dL (6.7-8.2)
[2021-03-06 20:37] LABS: ESTIMATED AVERAGE GLUCOSE 151 mg/dL (70-100); HEMOGLOBIN A1c% 6.9 % (4.27-6.07)
== END 2021-03-06 09:45 | disposition home or self-care (01) ==
LOC: LAB.S 09:44
PROVIDERS: ATTEND Internal Medicine
DX: I10 Essential (primary) hypertension (principal); E11.9 Type 2 diabetes mellitus without complications
CPT/HCPCS: 36415; 80053; 83036; 85025

== ENCOUNTER 2021-05-10 15:55 | Emergency (ER) | payer MEDICARE, OTHER ==
[2021-05-10 16:03] VITALS: BP 145/78
--- NOTE | 2021-05-10 16:07 | ED Physician Documentation ---
PD HPI LOWER EXT INJURY - Stated complaint Stated Complaint: LT FOOT INJURY - Chief complaint Chief Complaint: Ext Problem - History obtained from History obtained from: Patient - History of Present Illness PD HPI LOW EXT INJURY LOCATION: Left, Foot Type of injury: Blunt / blow (He had a small log fall from the would been onto his foot near the fireplace yesterday with increased redness and swelling today.) Where injury occurred: Home Timing - onset: Yesterday Timing - details: Abrupt onset (did not hurt that much with initial injury, but more pain and swelling into today.) Improved by: Rest Worsened by: Moving, Palpating Associated symptoms: Swelling, Discolored (red at the MTP). No: Weakness, Numbness Similar symptoms before: Has not had sx before Recently seen: Not recently seen Review of Systems Constitutional: denies: Fever, Chills Skin: denies: Abrasion (s), Laceration (s) Neurologic: denies: Focal weakness, Numbness PD PAST MEDICAL HISTORY - Past Medical History Cardiovascular: Hypertension, High cholesterol Respiratory: Asthma Neuro: Other Endocrine/Autoimmune: Type 2 diabetes GI: GERD : Benign prostate hypertrophy HEENT: None Psych: None Musculoskeletal: Osteoarthritis, Osteoporosis, Gout (no episodes for a long time), Chronic back pain Derm: None - Past Surgical History Past Surgical History: Yes Ortho: Spine surgery HEENT: Tonsil/Adenoidectomy - Present Medications Home Medications: Ambulatory Orders Medication Instructions Recorded Confirmed Gabapentin [Neurontin] 300 mg PO QPM 05/04/17 05/10/21 Montelukast [Singulair] 10 mg PO QPM PRN 05/04/17 05/10/21 atenoloL [Tenormin] 25 mg PO DAILY 05/04/17 05/10/21 tiZANidine [Zanaflex] 2 mg PO DAILY PRN 05/04/17 05/10/21 Ascorbic Acid [Vitamin C] 500 mg PO DAILY 05/21/19 05/10/21 Calcium Carbonate [Tums (Calcium 500 mg PO BID 05/21/19 05/10/21 Carbonate 500mg)] Cholecalciferol (Vitamin D3) 2,000 unit PO DAILY 05/21/19 05/10/21 [Vitamin D] Multivit-Min/FA/Lycopen/Lutein 1 each PO DAILY 05/21/19 05/10/21 [Centrum Silver Men Tablet] [place]-3S/Dha/Epa/Fish Oil [Fish 1 each PO DAILY 05/21/19 05/10/21 Oil [place]-3 Softgel] Pravastatin [Pravachol] 10 mg PO DAILY 05/21/19 05/10/21 Saw [place] 450 mg PO BID 05/21/19 05/10/21 Melatonin 10 - 20 mg PO QPM 05/22/19 05/10/21 Potassium Chelate 99 mg PO QPM 05/22/19 05/10/21 Famotidine [Zantac-360 20 mg pe ORAL DAILY 05/10/21 05/10/21 (Famotidine)] Mirtazapine 15 mg PO HS 05/10/21 05/10/21 dexAMETHasone [Decadron] 4 mg PO DAILY #5 tablet 05/10/21 - Allergies Allergies/Adverse Reactions: Allergies Allergy/AdvReac Type Severity Reaction Status Date / Time No Known Drug Allergies Allergy Verified 09/05/19 15:57 - Social History Does the pt smoke?: No Smoking Status: Never smoker Does the pt drink ETOH?: No Does the pt have substance abuse?: No - Immunizations Immunizations are current?: Yes - POLST Patient has POLST: No PD ED PE NORMAL - Vitals Vital signs reviewed: Yes - General General: Alert and oriented X 3, Well developed/nourished - Derm Derm: Normal color, Warm and dry - Extremities Extremities: Other (The left dorsal MTP of the great toe shows redness swelling and local tenderness. Clinically seems likely gout though reactive arthritis from the injury is possible. No skin lacerations.) - Neuro Neuro: Alert and oriented X 3, No motor deficit, No sensory deficit Results - Vitals Vitals: Vital Signs - 24 hr 05/10/21 16:00 Temperature 36.3 C L Heart Rate 66 Respiratory 20 Rate Blood Pressure 145/78 H O2 Saturation 96 Oxygen O2 Source Room air - Rads (name of study) left foot Radiology: Prelim report reviewed (Arthritic changes at the great toe MTP. No fractures.), See rad report PD MEDICAL DECISION MAKING - ED course Complexity details: reviewed results, considered differential (Some arthritis at the M TP joint on x-ray. No fractures. 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 The current symptoms can be a combination of local injury/contusion with subsequent swelling and inflammation of the joint. However it does have the degree of tenderness and redness that suggest the injury may have precipitated a gout flareup. Both the traumatic arthritis and gout flareup are similarly treated with anti- inflammatories such as Advil/ibuprofen and adding Tylenol if needed for pain. Use the firm soled shoe to reduce motion. If symptoms persist well over the next couple of days, you can add in Decadron steroid for inflammation instead of the Advil. Recheck if not improved well over the next several days.
[2021-05-10] MEDS ORDERED: DEXAMETHASONE 10 MG/ML VIAL PO STA (16:28)
[2021-05-10] MEDS ORDERED: CHERRY SYRUP 10 ML UDC PO ONE (16:28)
--- NOTE | 2021-05-10 16:53 | XRAY Report ---
PROCEDURE: Foot 3 View LT INDICATIONS: object fell to left foot; pain MCP area TECHNIQUE: 3 views of the foot were acquired. COMPARISON: None FINDINGS: Bones: No fractures or dislocations. No suspicious bony lesions. Degenerative changes are seen, wh ich are worst involving the first ray and overall most prominent involving the first metatarsal-phala ngeal joint. Soft tissues: Distal soft tissue swelling. IMPRESSION: No displaced fracture can be seen on these plain films. Focal first metatarsophalangeal joint degenerative change. Reviewed by: Emeterio Valentin MD on 05/10/2021 3:52 PM MARIAELENA Approved by: Emeterio Valentin MD on 05/10/2021 3:52 PM MARIAELENA Station ID: [id number]
== END 2021-05-10 17:08 | disposition home or self-care (01) ==
LOC: ED 15:55
DX: S90.32XA Contusion of left foot, initial encounter (principal); W20.8XXA Other cause of strike by thrown, projected or falling object, initial encounter; Y92.009 Unspecified place in unspecified non-institutional (private) residence as the place of occurrence of the external cause; M10.472 Other secondary gout, left ankle and foot; M19.072 Primary osteoarthritis, left ankle and foot; I10 Essential (primary) hypertension; E11.9 Type 2 diabetes mellitus without complications
CPT/HCPCS: 73630; 99283; A9270

== ENCOUNTER 2021-09-23 13:37 | Outpatient (CLI) | payer MEDICARE ==
[2021-09-23 20:19] LABS: BASOPHILS # (AUTO) 0.1 10^3/uL (0.0-0.1); BASOPHILS % (AUTO) 0.9 %; EOSINOPHILS # (AUTO) 0.1 10^3/uL (0.0-0.7); EOSINOPHILS % (AUTO) 1.3 %; HCT - HEMATOCRIT 48.5 % (42.0-52.0); HGB - HEMOGLOBIN 15.8 g/dL (14.0-18.0); LYMPHOCYTES # (AUTO) 2.1 10^3/uL (1.5-3.5); LYMPHOCYTES % (AUTO) 29.5 %; MEAN CORPUSCULAR HEMOGLOBIN 30.5 pg (27.0-31.0); MEAN CORPUSCULAR HGB CONC 32.6 g/dL (32.0-36.0); MEAN CORPUSCULAR VOLUME 93.6 fL (80.0-94.0); MEAN PLATELET VOLUME 9.8 fL (7.4-11.4); MONOCYTES # (AUTO) 0.8 10^3/uL (0.0-1.0); MONOCYTES % (AUTO) 11.5 %; NEUTROPHILS % (AUTO) 56.2 %; PLT - PLATELET COUNT 211 10^3/uL (130-450); RED BLOOD COUNT 5.18 10^6/uL (4.70-6.10); RED CELL DISTRIBUTION WIDTH 12.8 % (12.0-15.0)
[2021-09-23 20:32] LABS: ALBUMIN 4.2 g/dL (3.2-5.5); ALBUMIN/GLOBULIN RATIO 1.5 (1.0-2.2); ALKALINE PHOSPHATASE 57 IU/L (42-121); ALT ALANINE AMINOTRANSFERASE 40 IU/L (10-60); AST ASPARTATE AMINOTRANSFERASE 34 IU/L (10-42); BILIRUBIN,TOTAL 0.9 mg/dL (0.2-1.0); BUN - BLOOD UREA NITROGEN 15 mg/dL (6-20); CALCIUM 9.3 mg/dL (8.5-10.3); CARBON DIOXIDE - CO2 28 mmol/L (21-32); CHLORIDE 103 mmol/L (101-111); CHOLESTEROL 160 mg/dL; CREATININE 0.9 mg/dL (0.6-1.2); ESTIMATED AVERAGE GLUCOSE 163 mg/dL (70-100); GFR - MDRD 80 (>89); GLUCOSE 143 mg/dL (70-100); HDL CHOLESTEROL 40 mg/dL; HEMOGLOBIN A1c% 7.3 % (4.27-6.07); LDL CHOLESTEROL,CALCULATED 73 mg/dL; LDL/HDL RATIO 1.8 (<3.6); POTASSIUM 3.9 mmol/L (3.5-5.0); SODIUM 137 mmol/L (135-145); TRIGLYCERIDES 233 mg/dL; VLDL CHOLESTEROL 47 mg/dL
== END 2021-09-23 13:38 | disposition home or self-care (01) ==
LOC: LAB.S 13:37
PROVIDERS: ATTEND Internal Medicine
DX: E11.9 Type 2 diabetes mellitus without complications (principal); E78.00 Pure hypercholesterolemia, unspecified
CPT/HCPCS: 36415; 80053; 80061; 83036; 83721; 85025

== ENCOUNTER 2022-07-07 08:00 | Outpatient (CLI) | payer MEDICARE ==
--- NOTE | 2022-07-07 16:57 | XRAY Report ---
PROCEDURE: Chest 2 View X-Ray INDICATIONS: WHEEZING, PRODUCTIVE COUGH TECHNIQUE: 2 views of the chest were acquired. COMPARISON: None. FINDINGS: Surgical changes and devices: None. Lungs and pleura: Bibasilar linear densities are most likely scars or atelectasis. A 0.6 m noncalcif ied nodule in the right midlung zone. There is a calcified nodule in the right upper lobe. No pleural effusions or pneumothorax. Mediastinum: Mediastinal contours are normal. Heart size is normal. Bones and chest wall: No suspicious bony abnormalities. Soft tissues appear unremarkable. IMPRESSION: 1. No acute cardiopulmonary disease. Bibasilar linear densities are most likely scars and atelectasis . Early pneumonia could be obscured. 2. Suspect a 0.6 mm noncalcified nodule in the right midlung zone. Recommend chest CT for follow-up e valuation. Reviewed by: Aramis Lauren MD on 07/07/2022 4:55 PM PST Approved by: Aramis Lauren MD on 07/07/2022 4:55 PM PST Station ID: [id number]
== END 2022-07-07 08:01 | disposition home or self-care (01) ==
LOC: DI.S 08:00
PROVIDERS: ATTEND Physician Assistant
DX: R91.8 Other nonspecific abnormal finding of lung field (principal)

== ENCOUNTER 2022-07-09 12:56 | Outpatient (CLI) | payer MEDICARE ==
--- NOTE | 2022-07-09 20:19 | CT Report ---
PROCEDURE: CHEST WO INDICATIONS: LUNG MASS TECHNIQUE: Noncontrast 1mm axial images were acquired from the pulmonary apices to the posterior costophrenic an gles. Axial 5 mm soft tissue kernel reconstructions were performed as well as 8 mm axial MIP and cor onal and sagittal 5 mm reformations. For radiation dose reduction, the following was used: automate d exposure control, adjustment of mA and/or kV according to patient size. COMPARISON: Chest radiographs 07/07/2022 FINDINGS: Image quality: Excellent. Lungs and pleura: Linear atelectasis or scarring and a few coarse calcifications are seen in the lef t lung base. Mild focal atelectasis versus scarring is seen at the anterior medial right middle lobe. -4 mm calcified nodule in the right upper lobe (93/4). -A 7 mm subpleural nodule is seen in the superior segment of the right lower lobe (150/4), which like ly corresponds to the abnormality on radiographs from 07/07/2022. There is subtle calcification within this nodule. -3 mm subpleural noncalcified nodule in the left upper lobe (97/4). -A densely calcified subpleural nodule or pleural plaque is seen in the posterior left lower lobe (14 1/4). -A small nodular opacity in the left lower lobe measures approximately 11 x 3 mm (7 mm average diamet er) on image 207/4. No pleural effusions or pneumothorax. Central and peripheral airways are patent and normal in calibe r. Mediastinum: Heart size is normal. No pericardial effusion. No mediastinal adenopathy by size crit eria. Thoracic aorta and central pulmonary arteries are normal in size. Mild aortic atherosclerotic calcifications. Esophagus is normal in caliber. Small hiatal hernia. Bones and chest wall: No suspicious bony lesions. No vertebral body compression fractures. Mild de generative changes are seen in the spine. No axillary or supraclavicular adenopathy by size criteria. The thyroid is normal in size. A 2.2 x 0.9 cm intramuscular lipoma is seen within the left pectoral is major muscle in the parasternal region (26/3). Additional 2.8 cm intramuscular lipoma in the anter olateral left chest wall (31/3). Abdomen: A lobular 5.5 cm cyst is seen arising from the superior pole of the right kidney. A few div erticula are seen in the colon. IMPRESSION: Right lower lobe 7 mm subpleural nodule corresponds to the finding on prior chest radiograph dated . Additional calcified and noncalcified nodules are seen in both lungs. Overall, findings are favored represent prior granulomatous disease, but follow-up chest CT is recommended in approximately 6 months to demonstrate stability. Reviewed by: Ismael Nagy MD on 07/09/2022 8:17 PM PST Approved by: Ismael Nagy MD on 07/09/2022 8:17 PM PST Station ID: [id number]
== END 2022-07-09 12:57 | disposition home or self-care (01) ==
LOC: DI 12:56
PROVIDERS: ATTEND Physician Assistant Medical
DX: R91.8 Other nonspecific abnormal finding of lung field (principal)

== ENCOUNTER 2022-11-17 09:08 | Outpatient (CLI) | payer MEDICARE ==
[2022-11-17 14:38] LABS: BASOPHILS % (AUTO) 0.7 %; EOSINOPHILS # (AUTO) 0.2 10^3/uL (0.0-0.7); EOSINOPHILS % (AUTO) 3.2 %; HGB - HEMOGLOBIN 16.2 g/dL (14.0-18.0); LYMPHOCYTES # (AUTO) 2.2 10^3/uL (1.5-3.5); LYMPHOCYTES % (AUTO) 38.4 %; MEAN CORPUSCULAR HEMOGLOBIN 30.3 pg (27.0-31.0); MEAN CORPUSCULAR HGB CONC 31.8 g/dL (32.0-36.0); MEAN CORPUSCULAR VOLUME 95.3 fL (80.0-94.0); MEAN PLATELET VOLUME 9.6 fL (7.4-11.4); MONOCYTES # (AUTO) 0.6 10^3/uL (0.0-1.0); MONOCYTES % (AUTO) 10.6 %; NEUTROPHILS # (AUTO) 2.6 10^3/uL (1.5-6.6); NEUTROPHILS % (AUTO) 46.4 %; PLT - PLATELET COUNT 202 10^3/uL (130-450); RED BLOOD COUNT 5.35 10^6/uL (4.70-6.10); WHITE BLOOD COUNT 5.7 x10^3/uL (4.8-10.8)
[2022-11-17 15:00] LABS: ALBUMIN/GLOBULIN RATIO 1.3 (1.0-2.2); ALKALINE PHOSPHATASE 50 IU/L (42-121); ALT ALANINE AMINOTRANSFERASE 27 IU/L (10-60); AST ASPARTATE AMINOTRANSFERASE 27 IU/L (10-42); BILIRUBIN,TOTAL 0.9 mg/dL (0.2-1.0); BUN - BLOOD UREA NITROGEN 13 mg/dL (6-20); CALCIUM 8.9 mg/dL (8.5-10.3); CARBON DIOXIDE - CO2 29 mmol/L (21-32); CHLORIDE 104 mmol/L (101-111); CHOL/HDL RATIO 3.9 (<5.0); CHOLESTEROL 159 mg/dL; CREATININE 0.7 mg/dL (0.6-1.2); GFR - MDRD 107 (>89); GLUCOSE 135 mg/dL (70-100); HDL CHOLESTEROL 41 mg/dL; LDL CHOLESTEROL,CALCULATED 91 mg/dL; LDL/HDL RATIO 2.2 (<3.6); POTASSIUM 4.1 mmol/L (3.5-5.0); SODIUM 139 mmol/L (135-145); TRIGLYCERIDES 133 mg/dL; VLDL CHOLESTEROL 27 mg/dL
[2022-11-17 15:23] LABS: MICROALBUM/CREATININE RATIO,UR 3.6 ug/mg (<30.0); MICROALBUMIN,URINE 0.5 mg/dL (0-300.0)
[2022-11-17 20:38] LABS: ESTIMATED AVERAGE GLUCOSE 140 mg/dL (70-100); HEMOGLOBIN A1c% 6.5 % (4.27-6.07)
== END 2022-11-17 09:09 | disposition home or self-care (01) ==
LOC: LAB.S 09:08
PROVIDERS: ATTEND Registered Nurse
DX: E78.00 Pure hypercholesterolemia, unspecified (principal); E11.9 Type 2 diabetes mellitus without complications; Z79.899 Other long term (current) drug therapy
CPT/HCPCS: 36415; 80053; 80061; 82043; 82570; 83036; 83721; 85025

== ENCOUNTER 2023-01-21 14:41 | Outpatient (CLI) | payer MEDICARE ==
--- NOTE | 2023-01-21 15:49 | CT Report ---
PROCEDURE: CHEST WO INDICATIONS: LUNG NODULE TECHNIQUE: Noncontrast 1mm axial images were acquired from the pulmonary apices to the posterior costophrenic an gles. Axial 5 mm soft tissue kernel reconstructions were performed as well as 8 mm axial MIP and cor onal and sagittal 5 mm reformations. For radiation dose reduction, the following was used: automate d exposure control, adjustment of mA and/or kV according to patient size. COMPARISON: 07/09/2022 FINDINGS: Image quality: Good Lungs and pleura:Stable 7 mm right lower lobe superior segment pulmonary nodule (4/139). Other small nodules and granulomas are present, none are overtly suspicious/new/enlarging. Scattered scarring/ate lectasis again seen, particularly in the right middle lobe. No pleural effusions or dense airspace di sease. In the left lower lobe, an area of platelike atelectasis has slightly increased nodular thickening m easuring a thickness of 7 mm (). There are associated calcifications. Mediastinum, heart, and esophagus: No hiatal hernia. Annular calcifications around the aortic valve. No pathologic adenopathy by size criteria. There is a nodule behind the left thyroid node with a cent ral calcification measuring 1.8 x 1.2 cm (10/06). Chest wall and thyroid: Unremarkable. Left anterior chest wall intramuscular lipoma again seen. Upper abdomen: There are renal cysts. No gross abnormality on these noncontrast images. Atherosclerot ic calcifications are present. Colonic diverticula appear Bones: Degenerative changes. No acute or suspicious finding. IMPRESSION: Sequelae of granulomatous disease in the lungs. A right lower lobe superior segment [address] able compared to July 2022. An area of platelike suspected atelectasis in the left lower lobe is slightly more nodular than prior (). Consider another 6 month follow-up CT or sooner for surveill ance. A 1.8 x 1.2 cm nodule is seen behind the left thyroid, with a small central calcification, consider s onographic evaluation (10/06). Reviewed by: Irving Almeida MD on 01/21/2023 3:47 PM PDT Approved by: Irving Almeida MD on 01/21/2023 3:47 PM PDT Station ID: [id number]
== END 2023-01-21 14:42 | disposition home or self-care (01) ==
LOC: DI 14:41
PROVIDERS: ATTEND Physician Assistant Medical
DX: R91.8 Other nonspecific abnormal finding of lung field (principal); E04.1 Nontoxic single thyroid nodule

== ENCOUNTER 2023-02-10 09:00 | Outpatient (CLI) | payer MEDICARE ==
[2023-02-10 15:13] LABS: CREATININE 0.8 mg/dL (0.6-1.2); POTASSIUM 4.1 mmol/L (3.5-5.0)
[2023-02-10 21:07] LABS: ESTIMATED AVERAGE GLUCOSE 126 mg/dL (70-100)
== END 2023-02-10 09:01 | disposition home or self-care (01) ==
LOC: LAB.S 09:00
PROVIDERS: ATTEND Registered Nurse
DX: E11.9 Type 2 diabetes mellitus without complications (principal)
CPT/HCPCS: 36415; 80048; 83036